=== PATIENT | female | born 1995 | race Two or more races ===

== ENCOUNTER 2018-07-28 13:43 | Emergency (ER) | payer BC ==
--- NOTE | 2018-07-28 13:56 | ER Report ---
History and Physical Time Seen By MD: 13:55 Hx. of Stated Complaint: DETOX HPI/ROS CHIEF COMPLAINT: Alcohol detox HISTORY OF PRESENT ILLNESS: Patient is a 23-year-old female here for help with alcohol abuse. Patient reports that she has been abusing alcohol for quite some time but she needs to be worsening since she has turned 23. Patient reports that over the last and she has been drinking large quantities of alcohol. She reports that she varies between 1 bottle wine to approximately three quarter bottle of whiskey. Patient is hemodynamically stable at time of evaluation, in no acute distress. Patient takes Zoloft but otherwise denies other medications at this time. She is a student at the [employer]. Denies suicidal or homicidal ideation, history of self-harm. REVIEW OF SYSTEMS: Constitutional: No fever, no chills. Eyes: No discharge. ENT: No sore throat. Cardiovascular: No chest pain, no palpitations. Respiratory: No cough, no shortness of breath. Gastrointestinal: No abdominal pain, no vomiting. Genitourinary: No hematuria. Musculoskeletal: No back pain. Skin: No rashes. Neurological: No headache. Psych: denies SI/HI, + etoh abuse and intermittent marijuana use Home Meds Reported Medications Sertraline Hcl (ZOLOFT) 50 Mg Tablet, 1 TAB PO QDAY, TAB 07/28/18 Constitutional Vital Sign - Last 24 Hours 07/28/18 07/28/18 07/28/18 07/28/18 13:50 14:00 14:15 14:30 Temp 98.9 Pulse 76 82 ? Resp 20 17 19 B/P (MAP) 135/4 147/95 (112) ???/??? (1665) Pulse Ox 95 95 O2 Delivery Room Air 07/28/18 07/28/18 07/28/18 07/28/18 14:45 15:00 15:15 15:30 Pulse 79 80 80 80 Resp 14 23 19 11 B/P (MAP) 129/79 (96) 118/76 (90) 140/95 (110) 114/96 (102) Pulse Ox 93 85 94 92 07/28/18 07/28/18 07/28/18 07/28/18 15:45 16:00 16:15 16:30 Pulse 73 70 75 62 Resp 14 16 31 9 B/P (MAP) 139/92 (108) 133/94 (107) 129/94 (106) 142/88 (106) Pulse Ox 91 93 94 90 07/28/18 16:45 Pulse 73 Resp 16 B/P (MAP) 116/75 (89) Pulse Ox 94 Physical Exam General Appearance: The patient is alert, has no immediate need for airway protection and no signs of toxicity. NAD Eyes: Pupils equal and round no pallor or injection. ENT, Mouth: Mucous membranes are moist. Respiratory: There are no retractions, lungs are clear to auscultation. Cardiovascular: Regular rate and rhythm. [ ] Gastrointestinal: Abdomen is soft and non tender, no masses, bowel sounds normal. Neurological: No focal deficits Skin: Warm and dry, no rashes. Musculoskeletal: Neck is supple non tender. Extremities are nontender, nonswollen and have full range of motion. DIFFERENTIAL DIAGNOSIS: After history and physical exam differential diagnosis was considered for alcohol abuse, marijuana abuse, drug abuse, depression, anxiety Medical Decision Making Data Points Result Diagram: 07/28/18 1421 07/28/18 1421 Laboratory Hematology Test 07/28/18 14:11 07/28/18 14:21 Urine Color Yellow Urine Clarity Slightly-cloudy Urine pH 6.0 pH (4.8-9.5) Urine Specific Rogers 1.017 Urine Protein Negative mg/dL (NEGATIVE) Urine Glucose (UA) Negative mg/dL (NEGATIVE) Urine Ketones 20 mg/dL (NEGATIVE) Urine Blood Negative (NEGATIVE) Urine Nitrite Negative (NEGATIVE) Urine Bilirubin Negative (NEGATIVE) Urine Urobilinogen Negative mg/dL (0.2-1.9) Urine Leukocyte Esterase Negative (NEGATIVE) Urine RBC 2 /HPF (0-2/HPF) Urine WBC 2 /HPF (0-5/HPF) Urine Squamous Epithelial Cells Many /LPF (</=FEW) Urine Amorphous Crystals Few /HPF Urine Bacteria Few /HPF (NONE-FEW) Urine Mucus Few /HPF (NONE-FEW) Urine HCG, Qualitative Negative (NEGATIVE) Urine Opiates Screen Negative Urine Barbiturates Screen Negative Ur Tricyclic Antidepressants Screen Negative Urine Phencyclidine Screen Negative Urine Amphetamines Screen Negative Urine Benzodiazepines Screen Negative Urine Cocaine Screen Negative Urine Cannabinoids Screen Positive Red Blood Count 5.66 M/uL (4.17-5.56) Mean Corpuscular Volume 82.8 fL (80.0-96.0) Mean Corpuscular Hemoglobin 26.5 pg (26.0-33.0) Mean Corpuscular Hemoglobin Concent 32.1 g/dL (32.0-36.0) Red Cell Distribution Width 16.7 % (11.5-14.5) Mean Platelet Volume 7.9 fL (7.2-11.1) Neutrophils (%) (Auto) 69.5 % (39.4-72.5) Lymphocytes (%) (Auto) 19.6 % (17.6-49.6) Monocytes (%) (Auto) 5.2 % (4.1-12.4) Eosinophils (%) (Auto) 5.1 % (0.4-6.7) Basophils (%) (Auto) 0.6 % (0.3-1.4) Nucleated RBC Relative Count (auto) 0.0 /100WBC Neutrophils # (Auto) 8.6 K/uL (2.0-7.4) Lymphocytes # (Auto) 2.4 K/uL (1.3-3.6) Monocytes # (Auto) 0.6 K/uL (0.3-1.0) Eosinophils # (Auto) 0.6 K/uL (0.0-0.5) Basophils # (Auto) 0.1 K/uL (0.0-0.1) Nucleated RBC Absolute Count (auto) 0.00 K/uL Peripheral Blood Smear No Y/N Sodium Level 142 mmol/L (137-145) Potassium Level 4.0 mmol/L (3.5-5.0) Chloride Level 103 mmol/L (98-107) Carbon Dioxide Level 23 mmol/L (22-31) Blood Urea Nitrogen 13 mg/dl (7-18) Creatinine 0.80 mg/dl (0.52-1.04) Glomerular Filtration Rate Calc > 60.0 Random Glucose 91 mg/dl (75-110) Calcium Level 10.4 mg/dl (8.4-10.2) Magnesium Level 2.0 mg/dl (1.7-2.2) Total Bilirubin 0.4 mg/dl (0.2-1.3) Aspartate Amino Transf (AST/SGOT) 28 U/L (0-35) Alanine Aminotransferase (ALT/SGPT) 29 U/L (0-56) Alkaline Phosphatase 113 U/L (0-126) Total Protein 8.9 g/dl (6.3-8.2) Albumin 5.0 g/dl (3.5-5.0) Salicylates Level < 10 mg/L Salicylate Last Dose Date unknown Acetaminophen Level < 10 ug/ml Serum Alcohol < 10 mg/dl Chemistry Test 07/28/18 14:11 07/28/18 14:21 Urine Color Yellow Urine Clarity Slightly-cloudy Urine pH 6.0 pH (4.8-9.5) Urine Specific Rogers 1.017 Urine Protein Negative mg/dL (NEGATIVE) Urine Glucose (UA) Negative mg/dL (NEGATIVE) Urine Ketones 20 mg/dL (NEGATIVE) Urine Blood Negative (NEGATIVE) Urine Nitrite Negative (NEGATIVE) Urine Bilirubin Negative (NEGATIVE) Urine Urobilinogen Negative mg/dL (0.2-1.9) Urine Leukocyte Esterase Negative (NEGATIVE) Urine RBC 2 /HPF (0-2/HPF) Urine WBC 2 /HPF (0-5/HPF) Urine Squamous Epithelial Cells Many /LPF (</=FEW) Urine Amorphous Crystals Few /HPF Urine Bacteria Few /HPF (NONE-FEW) Urine Mucus Few /HPF (NONE-FEW) Urine HCG, Qualitative Negative (NEGATIVE) Urine Opiates Screen Negative Urine Barbiturates Screen Negative Ur Tricyclic Antidepressants Screen Negative Urine Phencyclidine Screen Negative Urine Amphetamines Screen Negative Urine Benzodiazepines Screen Negative Urine Cocaine Screen Negative Urine Cannabinoids Screen Positive White Blood Count 12.3 k/uL (4.5-11.0) Red Blood Count 5.66 M/uL (4.17-5.56) Hemoglobin 15.0 g/dL (12.0-16.0) Hematocrit 46.8 % (34.0-47.0) Mean Corpuscular Volume 82.8 fL (80.0-96.0) Mean Corpuscular Hemoglobin 26.5 pg (26.0-33.0) Mean Corpuscular Hemoglobin Concent 32.1 g/dL (32.0-36.0) Red Cell Distribution Width 16.7 % (11.5-14.5) Platelet Count 402 K/uL (150-450) Mean Platelet Volume 7.9 fL (7.2-11.1) Neutrophils (%) (Auto) 69.5 % (39.4-72.5) Lymphocytes (%) (Auto) 19.6 % (17.6-49.6) Monocytes (%) (Auto) 5.2 % (4.1-12.4) Eosinophils (%) (Auto) 5.1 % (0.4-6.7) Basophils (%) (Auto) 0.6 % (0.3-1.4) Nucleated RBC Relative Count (auto) 0.0 /100WBC Neutrophils # (Auto) 8.6 K/uL (2.0-7.4) Lymphocytes # (Auto) 2.4 K/uL (1.3-3.6) Monocytes # (Auto) 0.6 K/uL (0.3-1.0) Eosinophils # (Auto) 0.6 K/uL (0.0-0.5) Basophils # (Auto) 0.1 K/uL (0.0-0.1) Nucleated RBC Absolute Count (auto) 0.00 K/uL Peripheral Blood Smear No Y/N Glomerular Filtration Rate Calc > 60.0 Calcium Level 10.4 mg/dl (8.4-10.2) Magnesium Level 2.0 mg/dl (1.7-2.2) Total Bilirubin 0.4 mg/dl (0.2-1.3) Aspartate Amino Transf (AST/SGOT) 28 U/L (0-35) Alanine Aminotransferase (ALT/SGPT) 29 U/L (0-56) Alkaline Phosphatase 113 U/L (0-126) Total Protein 8.9 g/dl (6.3-8.2) Albumin 5.0 g/dl (3.5-5.0) Salicylates Level < 10 mg/L Salicylate Last Dose Date unknown Acetaminophen Level < 10 ug/ml Serum Alcohol < 10 mg/dl Toxicology Test 07/28/18 14:11 07/28/18 14:21 Urine Opiates Screen Negative Urine Barbiturates Screen Negative Ur Tricyclic Antidepressants Screen Negative Urine Phencyclidine Screen Negative Urine Amphetamines Screen Negative Urine Benzodiazepines Screen Negative Urine Cocaine Screen Negative Urine Cannabinoids Screen Positive Salicylates Level < 10 mg/L Salicylate Last Dose Date unknown Acetaminophen Level < 10 ug/ml Serum Alcohol < 10 mg/dl Urinalysis Test 07/28/18 14:11 Urine Color Yellow Urine Clarity Slightly-cloudy Urine pH 6.0 pH (4.8-9.5) Urine Specific Rogers 1.017 Urine Protein Negative mg/dL (NEGATIVE) Urine Glucose (UA) Negative mg/dL (NEGATIVE) Urine Ketones 20 mg/dL (NEGATIVE) Urine Blood Negative (NEGATIVE) Urine Nitrite Negative (NEGATIVE) Urine Bilirubin Negative (NEGATIVE) Urine Urobilinogen Negative mg/dL (0.2-1.9) Urine Leukocyte Esterase Negative (NEGATIVE) Urine RBC 2 /HPF (0-2/HPF) Urine WBC 2 /HPF (0-5/HPF) Urine Squamous Epithelial Cells Many /LPF (</=FEW) Urine Amorphous Crystals Few /HPF Urine Bacteria Few /HPF (NONE-FEW) Urine Mucus Few /HPF (NONE-FEW) Urine HCG, Qualitative Negative (NEGATIVE) ED Course/Re-evaluation ED Course Patient is a 23-year-old female here for treatment for alcohol abuse which is been ongoing for some time. Patient reports that since she turned 23 she has been having increasing abuse of alcohol drinking large quantities of wine and whiskey. Patient is here for treatment of her alcohol use. Patient also intermittently uses cannabis however denies other illicit drug use. Patient is dehydrated on examination and was given thiamine and folic acid and oral hydration. Patient denied suicidal or homicidal ideations. I discussed the patient with behavioral health who accepted the patient to their service. Decision to Disposition Date: Jul 28, 2018 Decision to Disposition Time: 16:45 Depart Departure Latest Vital Signs Vital Signs Date Time Temp Pulse Resp B/P (MAP) Pulse Ox O2 Delivery O2 Flow Rate FiO2 07/28/18 16:45 73 16 116/75 (89) 94 07/28/18 13:50 98.9 Room Air Impression: Primary Impression: Alcohol abuse Additional Impression: Desire for detoxification Condition: Improved Disposition: XFER TO [facility] Problem Qualifiers SAMINA LEUNG DO Jul 28, 2018 13:56
[2018-07-28] MEDS ORDERED: FOLIC ACID 1 MG TAB PO ONE (14:05)
[2018-07-28] MEDS ORDERED: THIAMINE HCL 100 MG TAB PO ONE (14:05)
[2018-07-28] MEDS ORDERED: SERT-1 PO (14:27)
[2018-07-28 14:32] LABS: PLATELET COUNT, AUTOMATED 402 K/uL (150-450)
[2018-07-28 16:45] VITALS: BP 116/75
== END 2018-07-28 17:07 ==
LOC: ER 14:03
DX: F10.20 Alcohol dependence, uncomplicated (principal)
CPT/HCPCS: 36415; 80305; 80320; 80329; 81001; 81025; 82040; 82247; 82310; 82374; 82435; 82565; 82947; 83735; 84075; 84132; 84155; 84295; 84443; 84450; 84460; 84520; 85025; 99284

== ENCOUNTER 2018-07-28 16:37 | Inpatient (IN) | payer BC ==
[~2018-07-28] VITALS: Ht 147.3 cm; Wt 49.4 kg
[~2018-07-28 16:37] MED LIST: SERT-1 PO
[2018-07-28] MEDS ORDERED: MAG HYD/AL HYD/SIMETH 30ML UDC PO PRN (17:50)
[2018-07-28 18:11] VITALS: BP 138/100
[2018-07-28] MEDS: DIAZEPAM 10 MG TAB PO PRN (21:18)
[2018-07-29 06:00] VITALS: BP 136/92
[2018-07-29] MEDS: SERTRALINE HCL 50 MG TAB PO SCH (08:05)
[2018-07-29] MEDS: MULTIVITAMINS TAB PO SCH (08:05)
[2018-07-29] MEDS: FOLIC ACID 1 MG TAB PO SCH (08:05)
[2018-07-29] MEDS: THIAMINE HCL 100 MG TAB PO SCH (08:05)
[2018-07-29 10:15] VITALS: BP 129/86
[2018-07-29] MEDS: DIAZEPAM 10 MG TAB PO PRN (11:42)
[2018-07-29 14:00] VITALS: BP 104/84
[2018-07-29 18:00] VITALS: BP 112/68
--- NOTE | 2018-07-29 19:41 | SCHAAF H&P ---
"DATE OF ADMISSION: July 28, 2018 ATTENDING PHYSICIAN Jacob Dominguez MD Patient was seen 29 July 2018 at approximately 1145 hours for note concerning this dictation. PRESENTING PROBLEM/CHIEF COMPLAINT Alcohol withdrawal. 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 Patient reports that prior to admission, she woke up and knew that she needed to stop. Patient reports drinking a bottle of wine a day and heavier amounts of whiskey on weekends. Patient reports there are no other specific stressors in her life other than the frustration with her alcohol use and increasing anxiety likely partially related to alcohol withdrawal. Patient reports her appetite has been down a little bit, and she may have been losing some weight. Her energy is okay. Concentration is okay. Interest in activities okay. Some minimal guilt and remorse when dealing with friends, does not seem significant. Patient reports sleep okay. Mood has been somewhat lower lately. Patient denies any jose or psychosis. She reports panic attacks which seem to be infrequent in nature and occur one approximately every two months. These seem to be related to anxiety-inducing thoughts. Patient reports always being a worrywart to some degree and appears to be an overachiever in some aspects. Patient denying any PTSD-type symptoms, denying any phobias, denying OCD. Patient reports cutting on herself one time in the past, and patient reports somatization symptoms that mimic panic attack-like symptoms when under stress, too. MENTAL HEALTH HISTORY Patient has never had inpatient psychiatric treatment or any treatment for alcohol withdrawal. Patient has been following up in [place] with some Zoloft. She does not have a therapist currently. Patient has no history of suicide attempts. Patient has been on Zoloft at a relatively low dose for about one year now. FAMILY PSYCHIATRIC HISTORY Patient reports that her father suffers from alcoholism as well as multiple other members on the father's side. Patient reports some alcoholism on the mother's side as well. Some anxiety and depression possibly exist in both mother and father. No suicides in the family that are known. PAST MEDICAL HISTORY 1. Approximately one month prematurity at . 2. Heart murmur in the past. 3. Patient also healing from a foot injury. She is not on control. Considers herself in overall good health. MEDICATIONS She is not on any medications. ALLERGIES Patient has no allergies. SOCIAL HISTORY Patient reports overall a good childhood. She has a twin sister. She is a high school graduate with a GPA of 3.8. Her grades are somewhat lower than they should be now in that she is getting some C's. She reports this departure from her normal higher grades in college is due to alcohol consumption. Patient is currently a minnie. She is not working. She gets some financial assistance throughout her parents and a trust fund. She has no significant other. Patient is taking up music as well as engineering at school. Patient has currently no significant other and reports her sexuality as ambiguous to some degree at this time. Patient reports having lots of friends. LEGAL HISTORY The patient has no legal history. SUBSTANCE ABUSE HISTORY Patient reports alcohol since a fairly early age. She reports at age 22 using cocaine and at 15 to 17 using opiates. Patient continues to use cannabis in edible form from time to time as well. PHYSICAL EXAMINATION Please see emergency room note. Notable for: GENERAL: A 23-year-old female of Traveler | VIP build. VITAL SIGNS: At time of admission, temperature 98.9, pulse 76, respiratory rate 20, blood pressure 147/95 at time of admission, pulse oximetry 95% on room air. LABORATORY DATA CBC notable for white blood cells elevated at 12.3, RBCs elevated at 5.66. Chemistry panel unremarkable overall. Urinalysis had ketones present. Negative screen. Toxicology screen positive for cannabis, negative for serum alcohol level. MENTAL STATUS EXAMINATION GENERAL APPEARANCE, BEHAVIOR, AND ATTITUDE: This is a cooperative, very polite, 23-year-old female, well groomed, making good eye contact. No bizarre mannerisms or tics. No periods of tearfulness. Interacting very well with this provider and other treatment team staff. Appears to be an overall accurate historian. SPEECH: Within normal limits. Regular rate, rhythm, volume, and tone. MOOD: Described as okay. AFFECT: Full and mood congruent. THOUGHT PROCESSES: Goal directed, logical. Patient reports wanting help with alcohol withdrawal. No loose associations or flight of ideas. THOUGHT CONTENT: Free of auditory or visual hallucinations, ideas of reference, thought broadcastings, delusions, obsessions, compulsions. Patient adamantly denying suicidal or homicidal ideations. SENSORIUM: Clear. COGNITION: Alert and oriented to person, place, time, and situation. MEMORY: Immediate, recent, and remote estimated intact. INTELLIGENCE: Average based on interview. INSIGHT AND JUDGMENT: Considered grossly intact in the absence of alcohol and illicit substance use. ASSESSMENT This is a polite, 23-year-old female who at this point suffers from alcohol use disorder, moderate in nature. Patient has a family history of alcoholism. Patient having heightened anxiety which may be associated with the absence of alcohol or marijuana or both as well to some degree. Will continue to educate. Will treat alcohol withdrawal to completion and look for other medications that can be beneficial as patient departs the unit and continues to abstain. DIAGNOSES PER DIAGNOSTIC AND STATISTICAL MANUAL OF MENTAL DISORDERS, FIFTH EDITION 1. Alcohol use disorder, moderate. 2. Alcohol withdrawal. 3. Anxiety disorder, unspecified. 4. Patient having supportive family. PLAN 1. Admit to the unit. 2. Necessary precautions will be implemented. 3. Patient will participate in individual and group therapy. 4. Medications will be adjusted and titrated accordingly. 5. Collateral information to be obtained as necessary. 6. Estimated length of stay three to five days. MTDD"
[2018-07-29] MEDS ORDERED: SERTRALINE HCL 50 MG TAB PO SCH (21:00)
[2018-07-29] MEDS ORDERED: MIRTAZAPINE 15 MG TAB PO SCH (21:00)
[2018-07-29 22:15] VITALS: BP 102/70
[2018-07-30 06:12] VITALS: BP 112/83
[2018-07-30] MEDS: SERTRALINE HCL 50 MG TAB PO SCH (08:15)
[2018-07-30] MEDS: MULTIVITAMINS TAB PO SCH (08:15)
[2018-07-30] MEDS: THIAMINE HCL 100 MG TAB PO SCH (08:15)
[2018-07-30] MEDS: FOLIC ACID 1 MG TAB PO SCH (08:15)
[2018-07-30] MEDS ORDERED: MIRT-1 PO (10:18)
[2018-07-30] MEDS ORDERED: MULT-1379 PO (10:19)
[2018-07-30] MEDS ORDERED: HYDR25CA83 PO (10:21)
--- NOTE | 2018-07-31 09:54 | SCHAAF DISCHARGE ---
DATE OF ADMISSION: July 28, 2018 DATE OF DISCHARGE: August 07, 2018 ATTENDING PHYSICIAN Jacob Dominguez MD Patient was seen on July 30, 2018 at approximately 0945 hours for note concerning this dictation. FINAL DIAGNOSES * Alcohol use disorder, moderate. * Alcohol withdrawal, resolved. * Anxiety disorder, unspecified. Patient having supportive social network. REASON FOR ADMISSION This is a very pleasant 23-year-old female who presented voluntarily to the emergency room here at [facility] with intention to be admitted for alcohol withdrawal. Patient was admitted without incident and was very cooperative on the Unit. She took an active role in her treatment throughout her stay. Alcohol withdrawal was considered minimal in nature and was treated with diazepam to completion. Patient giving a history of alcohol use disorder in the family. Patient very worried that her own drinking is escalating and she is aware she needs to stop. Please see history and physical for full details. Patient demonstrating potentially some underlying anxiety disorder as well. Patient responded to mirtazapine at night and continued to improve. Patient took an active role in therapy as well. PHYSICAL EXAMINATION Please see emergency room note. Notable for 23-year-old female in no acute medical distress. Vital signs at the time of admission: Temperature 98.9, pulse 76, respiratory rate 20, blood pressure 135/95 and pulse oximetry 95% on room air. At time of discharge from Behavioral Health Unit, vital signs showed temperature 96.4, pulse 71, respiratory rate 16, blood pressure 112/83 with pulse oximetry of 95% on room air. LABORATORY DATA TSH 1.16, normal range. At time of admission, CBC notable for white blood cells slightly elevated at 12.3, RBC's 5.66 and elevated, platelet count notable normal range at 402. MCV and MCH were nonelevated. Chemistry panel overall unremarkable with unremarkable hepatic function. Urinalysis did show ketones present int he urine, otherwise unremarkable. Toxicology screen positive for cannabis, which patient has previously been using edible. She has now stopped as well prior to admission. Negative serum alcohol upon admission. MENTAL STATUS EXAMINATION GENERAL APPEARANCE, BEHAVIOR AND ATTITUDE: This is a cooperative and polite 23-year-old female, making good eye contact, interacting well with this provider and other treatment team staff. No psychomotor agitation or retardation present. No periods of tearfulness. No bizarre mannerisms or tics. SPEECH: Within normal limits. Regular rate, rhythm, volume and tone. MOOD: Described as good. AFFECT: Full and bright. THOUGHT PROCESSES: Goal directed, logical. No loose associations or flight of ideas. THOUGHT CONTENT: Free of auditory or visual hallucinations, ideas of reference, thought broadcastings, delusions, obsessions or compulsions. The patient adamantly denying suicidal or homicidal ideation. SENSORIUM: Clear. COGNITION: Alert and oriented to person, place, time and situation. MEMORY: Immediate, recent and remote was estimated intact. INTELLIGENCE: Average, based on interview. INSIGHT AND JUDGMENT: Considered intact and appropriate for outpatient treatment and followup in the absence of alcohol or illicit substances. RESULTS OF TESTING Imaging: None. Laboratory data: See above. CONSULTATIONS None. TREATMENT Patient received medications, participated in individual and group therapy. HOSPITAL COURSE Patient was very pleasant and cooperative throughout her stay. Alcohol withdrawal was considered minimal in nature and treated to completion with diazepam. Patient was started on low-dose Remeron at 7.5 to 15 mg at bedtime with good results. Patient continued to take Zoloft 50 mg, which was prescribed prior to admission. Patient again taking an active role in her treatment. CONDITION OF PATIENT ON DISCHARGE Stable. Considered a minimal risk to herself or others and appropriate for outpatient care. DISPOSITION The patient was discharged to home. She will follow up with outpatient services including therapy and medication management. She will abstain from alcohol, was encouraged to consider AA and abstain from alcohol and illicit substances. She was given the Crisis Line should symptoms return. Medications at time of discharge included Remeron 7.5 to 15 mg p.o. at bedtime, multivitamin with minerals daily, Zoloft 50 mg every a.m. and hydroxyzine 25 mg one to two p.o. every eight hours p.r.n. for anxiety. The risks, benefits and alternatives of the above discharge plan were discussed. Informed consent was given to proceed with the above discharge plan by this cooperative patient. GILDA
== END 2018-07-30 13:53 | disposition home or self-care (01) | DRG 897 ==
LOC: BHS 16:37
PROVIDERS: ADMIT Psychiatry & Neurology Psychiatry; ATTEND Psychiatry & Neurology Psychiatry
DX: F10.230 Alcohol dependence with withdrawal, uncomplicated (principal); F41.9 Anxiety disorder, unspecified; F41.0 Panic disorder [episodic paroxysmal anxiety]; Y90.0 Blood alcohol level of less than 20 mg/100 ml; Z91.5 Personal history of self-harm